=== PATIENT | female | born 1950 | race Caucasian/White ===

== ENCOUNTER → 2016-07-04 | Outpatient (REF) | payer MEDICARE, MEDICAID ==
[~2016-07-04] MED LIST: ASPI-860 PO; ATOR20TA PO; BACL10TA PO; EZET1TAB7 PO; FRSM40T PO; LOPE2TAB17 PO; LSRT50T PO; METF1000 PO; METF500T4 PO; MINERALS PO; MULT-19 PO; NFLOSA25TA PO; NSTR15C EXT; OMEP20TA PO; OMG1KC PO; OXYB5TAB9 PO; SERT100T PO; THERAPEUTIC PO; TIZAN4T PO; WARF5TAB PO; WARF7.5T PO
[2016-07-04 13:48] LABS: BILIRUBIN,URINE Negative (Negative); CLARITY,URINE Cloudy; COLOR,URINE Yellow; GLUCOSE, URINE (UA) Negative (Negative); LEUKOCYTE ESTERASE ,URINE 3+ (Negative); PH,URINE 5.5 (5.0 - 8.0); UROBILINOGEN,URINE 0.2 mg/dL (0.2-1.0)
[2016-07-04 13:54] LABS: URINE CENTRIFUGED VOLUME 12 mL
== END ==
LOC: LAB 12:19
PROVIDERS: ATTEND Internal Medicine
DX: R82.99 Other abnormal findings in urine (principal)
CPT/HCPCS: 81003; 81015; 87077; 87088; 87186